=== PATIENT | male | born 1965 | race Caucasian/White ===

== ENCOUNTER 2023-04-27 08:53 | Day surgery (SDC) | payer BC ==
[~2023-04-27] VITALS: Ht 175.3 cm; Wt 67.7 kg
[~2023-04-27 08:53] MED LIST: ATOR1TAB19 PO; HYDR-3490 PO; NS 1,000 ML IV ONE; PROP80TA PO
[2023-04-27] MEDS ORDERED: propofoL 200 MG/20 ML VIAL As Ordered ONE (10:51)
[2023-04-27] MEDS ORDERED: LIDOCAINE 2% 100MG/5ML SDV (FOR ANES.) As Ordered ONE (10:51)
[2023-04-27] MEDS ORDERED: fentaNYL 100 MCG/2 ML INJECTION As Ordered ONE (10:51)
[2023-04-27 11:06] VITALS: TEMP 96.9
[2023-04-27 11:27] VITALS: BP 140/79; O2SAT 94
== END 2023-04-27 11:28 | disposition home or self-care (01) ==
LOC: M OPP 08:53
PROVIDERS: ATTEND Surgery
DX: D12.6 Benign neoplasm of colon, unspecified (principal); K57.30 Diverticulosis of large intestine without perforation or abscess without bleeding; D50.9 Iron deficiency anemia, unspecified; K29.70 Gastritis, unspecified, without bleeding; K31.89 Other diseases of stomach and duodenum; Z87.891 Personal history of nicotine dependence; Z79.02 Long term (current) use of antithrombotics/antiplatelets; Z79.899 Other long term (current) drug therapy
CPT/HCPCS: 43239; 45380; 88305; J3010

== ENCOUNTER 2023-08-06 06:42 | Emergency (ER) | payer BC ==
[~2023-08-06] VITALS: Ht 180.3 cm; Wt 67.9 kg
[~2023-08-06 06:42] MED LIST changes: -NS 1,000 ML IV ONE
[2023-08-06 07:21] VITALS: BP 162/99; TEMP 97.5; O2SAT 96
[2023-08-06] MEDS: KETOROLAC 60MG 2ML VIAL IM ONE (07:45)
== END 2023-08-06 08:12 | disposition home or self-care (01) ==
LOC: M ED 06:42
DX: M25.462 Effusion, left knee (principal); I10 Essential (primary) hypertension; E78.5 Hyperlipidemia, unspecified; F10.10 Alcohol abuse, uncomplicated; Z79.899 Other long term (current) drug therapy
CPT/HCPCS: 73560; 96372; 99284; J1885